=== PATIENT | male | born 1965 | race Caucasian/White ===

== ENCOUNTER → 2017-02-08 | Outpatient (CLI) | payer OTHER ==
--- NOTE | 2017-02-08 13:04 | RAD ---
Lumbar spine, 3 views, 02/08/2017: History: Low back injury, chronic low back pain The lumbar vertebral heights are well-maintained. There is mild narrowing of the L5-S1 disc space with a vacuum disc phenomena and moderate marginal spurring. The other lumbar disc spaces are well-maintained. There are additional small scattered marginal spurs. No fracture or dislocation is identified. Aortic calcific plaquing is present. IMPRESSION: 1. Mild scattered degenerative changes 2. No acute abnormality is detected. Left tibia and fibula, 2 views, 02/08/2017: History: Fracture There are 2 surgical screws at the level of the medial malleolus transfixing an old healed fracture. Old screw tracks are present in the distal fibula with deformity of the distal fibula compatible with an old healed fracture. No acute fracture is identified. The soft tissues are unremarkable. IMPRESSION: Old healed distal tibial and fibular fractures.
== END | disposition home or self-care (01) ==
LOC: RAD 08:58
PROVIDERS: ATTEND Surgery
DX: M47.897 Other spondylosis, lumbosacral region (principal); M79.662 Pain in left lower leg
CPT/HCPCS: 72100; 73590